=== PATIENT | male | born 1955 | race American Indian/Alaskan Native ===

== ENCOUNTER 2019-12-24 03:58 | Emergency (ER) | payer SELFPAY ==
[2019-12-24 04:09] VITALS: BP 166/106
--- NOTE | 2019-12-24 05:17 | Emergency Department Report ---
ED Back Pain/Injury HPI - General Chief Complaint: Extremity Injury, Lower Stated Complaint: LEFT LEG AND HIP PAIN Time Seen by Provider: 12/24/19 05:08 Source: patient Limitations: No Limitations - History of Present Illness MD Complaint: back pain Similar Symptoms Previously: No Place: home Radiation: none Severity: mild, moderate Quality: other (No trauma) Improves With: none Worsens With: none Associated Symptoms: denies: chest pain, difficulty walking, fever/chills, constipation, headaches, rash, seizure - Related Data Previous Rx's Medication Instructions Recorded Last Taken Type methOCARBAMOL [Robaxin] 750 mg PO Q8H PRN #21 tablet 12/24/19 Unknown Rx predniSONE [Deltasone] 50 mg PO QDAY #5 tab 12/24/19 Unknown Rx traMADoL [Ultram] 50 mg PO Q6HR PRN #20 tablet 12/24/19 Unknown Rx Allergies Allergy/AdvReac Type Severity Reaction Status Date / Time No Known Allergies Allergy Verified 12/24/19 04:08 ED Review of Systems ROS: Stated complaint: LEFT LEG AND HIP PAIN Other details as noted in HPI Comment: All other systems reviewed and negative ED Past Medical Hx - Past Medical History Previous Medical History?: Yes Hx Hypertension: Yes - Surgical History Past Surgical History?: No - Social History Smoking Status: Never Smoker Substance Use Type: None - Medications Home Medications: Home Medications Medication Instructions Recorded Confirmed Last Taken Type methOCARBAMOL [Robaxin] 750 mg PO Q8H PRN #21 tablet 12/24/19 Unknown Rx predniSONE [Deltasone] 50 mg PO QDAY #5 tab 12/24/19 Unknown Rx traMADoL [Ultram] 50 mg PO Q6HR PRN #20 tablet 12/24/19 Unknown Rx ED Physical Exam - General Limitations: No Limitations General appearance: alert, in no apparent distress - Head Head exam: Present: atraumatic, normocephalic - Eye Eye exam: Present: normal appearance, PERRL, EOMI Pupils: Present: normal accommodation - ENT ENT exam: Present: normal exam, mucous membranes moist, TM's normal bilaterally - Neck Neck exam: Present: normal inspection - Respiratory Respiratory exam: Present: normal lung sounds bilaterally. Absent: respiratory distress - Cardiovascular Cardiovascular Exam: Present: regular rate, normal rhythm. Absent: systolic murmur, diastolic murmur, rubs, gallop - GI/Abdominal GI/Abdominal exam: Present: soft, tenderness, normal bowel sounds - Rectal Rectal exam: Present: deferred - Extremities Exam Extremities exam: Present: normal inspection - Back Exam Back exam: Present: normal inspection, paraspinal tenderness, other (There is tenderness to the left sacroiliac joint and along the sciatic region. Full range of motion is noted strength is 5 of 5 pulses 2+ sensation is intact. No foot drop no clonus) - Neurological Exam Neurological exam: Present: alert, oriented X3, CN II-XII intact. Absent: motor sensory deficit, reflexes normal - Psychiatric Psychiatric exam: Present: normal affect, normal mood - Skin Skin exam: Present: warm, dry, intact, normal color. Absent: rash ED Course Vital Signs 12/24/19 04:03 Temperature 98.3 F Pulse Rate 64 Respiratory 18 Rate Blood Pressure 166/106 O2 Sat by Pulse 100 Oximetry ED Medical Decision Making - Medical Decision Making Pt presents the emergency department complaining of back pain most consistent with lumbar go with sciatica back Pain Most Consistent with Strain/Contusion. Differential Diagnosis Includes Lumbar Go Versus Musculoskeletal Spasm, Strain Versus Sciatica. No Back Pain Red Flags on History or Physical. Presentation Not Consistent with Malignancy, Fracture, Cauda Equina, Abdominal Aortic Aneurysm, Viscus Perforation, Pulmonary Embolism, Renal Colic, Pyelonephritis. Patient reports no B symptoms, trauma trauma, incontinence, saddle anesthesia, distal weakness, urinary symptoms and is a febrile. Critical care attestation.: If time is entered above; I have spent that time in minutes in the direct care of this critically ill patient, excluding procedure time. ED Disposition Clinical Impression: Lumbago with sciatica, left side Disposition: TO HOME OR SELFCARE Is pt being admited?: No Does the pt Need Aspirin: No Condition: Stable Instructions: Lumbar Radiculopathy (ED) Referrals: PRIMARY CARE, [Primary Care Provider] - 3-5 Days JACOBO JEAN MD [Staff Physician] - 3-5 Days
== END 2019-12-24 05:33 | disposition home or self-care (01) ==
LOC: ED 03:58
DX: M54.42 Lumbago with sciatica, left side (principal)
CPT/HCPCS: 99282

== ENCOUNTER 2020-01-27 07:21 | Emergency (ER) | payer SELFPAY ==
[2020-01-27 07:27] VITALS: BP 183/101
--- NOTE | 2020-01-27 08:17 | Emergency Department Report ---
Chief Complaint: Extremity Injury, Lower Stated Complaint: LEG PAIN Time Seen by Provider: 01/27/20 08:01 - HPI History of Present Illness: 64-year-old -[place] male presents to the emergency room for 2-month history of left leg pain that starts in the hip and radiates down. Patient was seen here last on 12/24/2019 for the same complaint. At that time patient was discharged home on tramadol prednisone and Robaxin which she reports did not help. Patient also was referred to Dr. Neal which she did not follow-up. Patient was able to ambulate here to the emergency room. It was reported by nurse that patient has not taken his blood pressure medication this morning. Patient denies any new injuries. Denies any urinary or fecal incontinent and no trauma. - Exam Vital Signs: Vital Signs 01/27/20 07:25 Temperature 98.6 F Pulse Rate 62 Respiratory 18 Rate Blood Pressure 183/101 O2 Sat by Pulse 100 Oximetry Physical Exam: Alert and oriented x3 no acute distress nontoxic in appearance Full range of motion of extremities ambulating without difficulties MSE screening note: Focused history and physical exam performed. Due to findings the following was ordered: 64-year-old -[place] male presents to the emergency room for 2-month history of left leg pain that starts in the hip and radiates down. Patient was seen here last on 12/24/2019 for the same complaint. At that time patient was discharged home on tramadol prednisone and Robaxin which she reports did not help. Patient also was referred to Dr. Neal which she did not follow-up. Patient was able to ambulate here to the emergency room. It was reported by nurse that patient has not taken his blood pressure medication this morning. Patient denies any new injuries. Denies any urinary or fecal incontinent and no trauma. Discussed with patient to take ibuprofen for pain and to follow-up with Dr. Neal. ED Disposition for [facility] [place] Disposition: Z-07 MED SCREENING EXAM-LEFT Is pt being admited?: No Does the pt Need Aspirin: No Condition: Stable Instructions: Sciatica (ED) Additional Instructions: Discussed with patient to take ibuprofen for pain and to follow-up with Dr. Neal. Referrals: PRABHA SEVILLA III, DOSIMETRIST-BC [Primary Care Provider] - 3-5 Days JACOBO NEAL MD [Staff Physician] - 3-5 Days
== END 2020-01-27 08:13 | disposition left against medical advice (07) ==
LOC: ED 07:21
DX: M79.605 Pain in left leg (principal); Z53.21 Procedure and treatment not carried out due to patient leaving prior to being seen by health care provider